=== PATIENT | female | born 1970 | race Caucasian/White ===

== ENCOUNTER 2018-04-20 18:44 | Inpatient (IN) | payer MEDICAID ==
[~2018-04-20] VITALS: Ht 157.5 cm; Wt 58.1 kg
[2018-04-20] MEDS ORDERED: ASPIRIN 81MG TABLET PO ONE (19:15)
[2018-04-20] MEDS ORDERED: NITROGLYCERIN 0.4MG TABLET SL SL PRN (19:15)
[2018-04-20 19:41] LABS: BASOPHILS % 0.9 % (0.0-2.0); EOSINOPHILS % 0.4 % (0.0-5.0); HEMATOCRIT. 39.5 % (36.0-48.0); HEMOGLOBIN. 13.2 g/dL (12.0-16.0); LYMPHOCYTES % 38.3 % (20.0-50.0); MEAN CORPUSCULAR HEMOGLOBIN 29.4 pg (28.0-32.0); MEAN CORPUSCULAR VOLUME 87.8 fL (81.0-99.0); MONOCYTES % 8.7 % (2.0-8.0); NEUTROPHILS % 51.7 % (40.0-76.0); PLATELET 260 x1000/uL (130-400); RED CELL DISTRIBUTION WIDTH 14.7 % (11.6-14.6)
[2018-04-20 19:45] LABS: CHLORIDE 109 mEq/L (98-107)
[2018-04-20 19:52] LABS: D-DIMER < 0.19 mg/L FEU (<0.50); PARTIAL THROMBOPLASTIN TIME 24.7 sec (23.4-31.0)
[2018-04-20] MEDS ORDERED: IPRATROPIUM/ALBUTEROL 0.5-3(2.5)MG/3ML NEB INH PRN (22:00)
[2018-04-20] MEDS ORDERED: MAGNESIUM/ALUMINUM HYDROXIDE/SIMETHICONE 30ML UDC PO PRN (22:00)
[2018-04-20] MEDS ORDERED: ACETAMINOPHEN 325MG TABLET PO PRN (22:00)
[2018-04-20] MEDS ORDERED: HYDROCODONE/ACETAMINOPHEN 5/325MG TABLET PO PRN (22:00)
[2018-04-20] MEDS ORDERED: CLONIDINE 0.1MG TABLET PO PRN (22:00)
[2018-04-20] MEDS ORDERED: ONDANSETRON HCL 4MG/2ML INJ IV PRN (22:00)
[2018-04-20] MEDS ORDERED: DOCUSATE SODIUM 100MG CAPSULE PO PRN (22:00)
[2018-04-20 22:14] LABS: CHLORIDE 109 mEq/L (98-107)
[2018-04-20 22:25] LABS: CREATINE KINASE 55 IU/L (26-192)
[2018-04-20 22:27] LABS: CREATINE KINASE MB FRACTION < 1.0 ng/mL (0.5-3.6)
[2018-04-20 23:49] LABS: *AMPHETAMINES SCREEN URINE NEGATIVE (NEGATIVE); *BARBITURATES SCREEN URINE NEGATIVE (NEGATIVE); *BENZODIAZEPINES SCREEN URINE NEGATIVE (NEGATIVE)
[2018-04-20 23:50] LABS: *COCAINE SCREEN URINE NEGATIVE (NEGATIVE); CANNABINOID URINE SCREEN NEGATIVE (NEGATIVE); METHADONE URINE SCREEN NEGATIVE (NEGATIVE); OPIATES URINE SCREEN NEGATIVE (NEGATIVE); PHENCYCLIDINE URINE SCREEN NEGATIVE (NEGATIVE)
[2018-04-21] VITALS (8 sets, daily range): BP systolic 133–161; BP diastolic 70–104
[2018-04-21 07:32] LABS: BASOPHILS % 0.8 % (0.0-2.0); EOSINOPHILS % 1.3 % (0.0-5.0); HEMOGLOBIN. 12.5 g/dL (12.0-16.0); LYMPHOCYTES % 40.2 % (20.0-50.0); MEAN CORPUSCULAR HEMOGLOBIN 29.4 pg (28.0-32.0); MEAN CORPUSCULAR VOLUME 87.1 fL (81.0-99.0); MEAN PLATELET VOLUME 8.2 fl (7.4-10.4); MONOCYTES % 10.4 % (2.0-8.0); NEUTROPHILS % 47.3 % (40.0-76.0); PLATELET 261 x1000/uL (130-400); RED BLOOD CELL COUNT 4.25 mill/uL (4.2-5.4); RED CELL DISTRIBUTION WIDTH 14.7 % (11.6-14.6)
[2018-04-21 07:53] LABS: LDL CHOLESTEROL 153 mg/dL (5-100)
[2018-04-21 07:54] LABS: CREATINE KINASE 43 IU/L (26-192)
[2018-04-21 07:55] LABS: HDL CHOLESTEROL 53 mg/dL (40-59)
[2018-04-21 07:56] LABS: CREATINE KINASE MB FRACTION < 1.0 ng/mL (0.5-3.6)
[2018-04-21] MEDS: ENOXAPARIN 40MG/0.4ML SYR SUBCUT SCH (09:31)
[2018-04-21] MEDS: ASPIRIN 81MG EC TABLET PO SCH (09:31)
[2018-04-22] VITALS: BP 144/72
[2018-04-22 04:00] VITALS: BP 128/88
[2018-04-22 07:56] LABS: BASOPHILS % 0.8 % (0.0-2.0); EOSINOPHILS % 1.8 % (0.0-5.0); HEMATOCRIT. 37.3 % (36.0-48.0); HEMOGLOBIN. 12.4 g/dL (12.0-16.0); LYMPHOCYTES % 46.9 % (20.0-50.0); MEAN CORPUSCULAR HEMOGLOBIN 29.7 pg (28.0-32.0); MEAN CORPUSCULAR VOLUME 89.4 fL (81.0-99.0); MEAN PLATELET VOLUME 7.9 fl (7.4-10.4); MONOCYTES % 10.6 % (2.0-8.0); NEUTROPHILS % 39.9 % (40.0-76.0); PLATELET 244 x1000/uL (130-400); RED BLOOD CELL COUNT 4.17 mill/uL (4.2-5.4); RED CELL DISTRIBUTION WIDTH 14.5 % (11.6-14.6)
[2018-04-22 08:00] VITALS: BP 129/84
[2018-04-22 08:05] LABS: CHLORIDE 106 mEq/L (98-107)
[2018-04-22] MEDS: ASPIRIN 81MG EC TABLET PO SCH (09:01)
[2018-04-22] MEDS: ENOXAPARIN 40MG/0.4ML SYR SUBCUT SCH (09:05)
[2018-04-22] MEDS ORDERED: AMLO5TAB4 PO (09:12)
[2018-04-22] MEDS ORDERED: TAMO20TA4 PO (09:12)
[2018-04-22] MEDS ORDERED: ASPIRIN 81MG EC TABLET PO SCH (11:30)
[2018-04-22 12:00] VITALS: BP 121/79
[2018-04-22 15:08] VITALS: BP 121/79
[2018-04-22] MEDS ORDERED: ATORVASTATIN CALCIUM 20MG TABLET PO SCH (21:00)
[2018-04-23] MEDS ORDERED: ATENOLOL 25MG TABLET PO SCH (08:00)
== END 2018-04-22 16:27 | disposition home or self-care (01) | DRG 203 ==
LOC: ER 18:44 → 7WST 20:31 → EDBEDREQTM 20:37 → EDBEDREQ 20:37 → ENRESERV 22:43
PROVIDERS: ADMIT Internal Medicine; ATTEND Internal Medicine
DX: M94.0 Chondrocostal junction syndrome [Tietze] (principal); E87.8 Other disorders of electrolyte and fluid balance, not elsewhere classified; I50.32 Chronic diastolic (congestive) heart failure; I11.0 Hypertensive heart disease with heart failure; C50.911 Malignant neoplasm of unspecified site of right female breast; E78.5 Hyperlipidemia, unspecified; E87.6 Hypokalemia
CPT/HCPCS: 36415; 71045; 80048; 80061; 80305; 82550; 82553; 83735; 84443; 84484; 85379; 93005; 93306; 93970; 99285; J1650

== ENCOUNTER 2021-01-05 19:41 | Inpatient (IN) | payer MEDICAID ==
[~2021-01-05] VITALS: Ht 137.2 cm; Wt 58.3 kg
[~2021-01-05 19:41] MED LIST: AMLO5TAB4 PO; TAMO20TA4 PO
[2021-01-05] MEDS ORDERED: CEFTRIAXONE 1 G PREMIX 50 ML IV ONE (20:45)
[2021-01-05] MEDS ORDERED: DEXAMETHASONE 10 MG/ML VIAL IV ONE (20:45)
[2021-01-05] MEDS ORDERED: DOXYCYCLINE HYCLATE 100MG CAPSULE PO ONE (20:45)
[2021-01-05 21:07] LABS: BASOPHILS % 0.7 % (0.0-2.0); EOSINOPHILS % 0.9 % (0.0-5.0); HEMATOCRIT. 37.3 % (36.0-48.0); HEMOGLOBIN. 12.8 g/dL (12.0-16.0); LYMPHOCYTES % 45.3 % (20.0-50.0); MEAN CORPUSCULAR HEMOGLOBIN 28.8 pg (28.0-32.0); MEAN CORPUSCULAR VOLUME 83.5 fL (81.0-99.0); MEAN PLATELET VOLUME 7.2 fl (7.4-10.4); NEUTROPHILS % 39.1 % (40.0-76.0); PLATELET 624 x1000/uL (130-400); RED BLOOD CELL COUNT 4.46 mill/uL (4.2-5.4); RED CELL DISTRIBUTION WIDTH 13.9 % (11.6-14.6)
[2021-01-05 21:13] LABS: CHLORIDE 105 mEq/L (98-107)
[2021-01-05 21:20] LABS: PROTHROMBIN TIME 10.9 sec (9.6-11.0)
[2021-01-05 21:39] LABS: BG BASE EXCESS 3.9 mmol/L (-2.0-2.0); BG CARBOXYHEMOGLOBIN 0.2 % (0.5-1.5); BG DEOXYHEMOGLOBIN 1.5 % (0.0-5.0); BG FRACTION INSPIRED OXYGEN 24; BG METHEMOGLOBIN 0.3 % (0.0-1.5); BG OXYGEN SATURATION 98.5 % (92.0-98.5); BG PCO2 35.8 mmHg (35.0-45.0); BG PH 7.496 (7.350-7.450); BG PO2 131.4 mmHg (75.0-100.0); BG SAMPLE SITE LEFT BRACHIAL; BG TOTAL HEMOGLOBIN 13.4 g/dL (12.0-18.0); BG VENT MODE NASAL CANNULA
[2021-01-05] MEDS ORDERED: IOHEXOL-350 100 ML BOTTLE ONE (23:29)
[2021-01-06] MEDS ORDERED: ONDANSETRON HCL 4MG/2ML INJ IV PRN (11:00)
[2021-01-06] MEDS ORDERED: ACETAMINOPHEN 325MG TABLET PO PRN (11:00)
[2021-01-06] MEDS ORDERED: AMLO10TA80 MT (11:10)
[2021-01-06 11:13] VITALS: BP 125/72
[2021-01-06] MEDS ORDERED: ENOXAPARIN 40MG/0.4ML SYR SUBCUT SCH (11:30)
[2021-01-06 12:00] VITALS: BP 114/77
[2021-01-06 14:18] VITALS: BP 126/74
[2021-01-07] MEDS ORDERED: DEXAMETHASONE 6MG TABLET PO SCH (09:00)
== END 2021-01-06 14:45 | disposition home or self-care (01) | DRG 133 ==
LOC: ER 19:41 → MICUSO 01-06 01:32 → 7WST 01-06 06:54
PROVIDERS: ADMIT Internal Medicine; ATTEND Internal Medicine
DX: J96.20 Acute and chronic respiratory failure, unspecified whether with hypoxia or hypercapnia (principal); E66.9 Obesity, unspecified; I10 Essential (primary) hypertension; Z79.899 Other long term (current) drug therapy; Z87.01 Personal history of pneumonia (recurrent); Z71.3 Dietary counseling and surveillance; Z68.31 Body mass index [BMI] 31.0-31.9, adult; Z86.16 Personal history of COVID-19
CPT/HCPCS: 36415; 36600; 71045; 71275; 80053; 82375; 82805; 83605; 83880; 84484; 85025; 87426; 93005; 99285; C9803; J0696; J1100; J1650; Q9967; U0003; U0005

== ENCOUNTER 2025-02-15 23:02 | Emergency (ER) | payer MEDICAID ==
[~2025-02-15] VITALS: Ht 162.6 cm; Wt 59.0 kg
[~2025-02-15 23:02] MED LIST changes: +AMLO10TA80 MT; -AMLO5TAB4 PO; -TAMO20TA4 PO
[2025-02-15 23:05] VITALS: O2SAT 100
[2025-02-16 00:43] LABS: BASOPHILS % 0.3 % (0.0-2.0); EOSINOPHILS % 0.4 % (0.0-5.0); HEMATOCRIT. 38.5 % (36.0-48.0); HEMOGLOBIN. 12.9 g/dL (12.0-16.0); LYMPHOCYTES % 18.6 % (20.0-50.0); MEAN PLATELET VOLUME 8.0 fl (7.4-10.4); MONOCYTES % 7.7 % (2.0-8.0); NEUTROPHILS % 73.0 % (40.0-76.0); PLATELET 254 x1000/uL (130-400); RED BLOOD CELL COUNT 4.39 mill/uL (4.2-5.4); RED CELL DISTRIBUTION WIDTH 13.3 % (11.6-14.6)
[2025-02-16 00:56] LABS: CREATININE 0.7 mg/dL (0.6-1.0)
[2025-02-16 00:57] LABS: ETHANOL BLOOD < 10 mg/dL (<10); UREA NITROGEN BLOOD 9 mg/dL (9-23)
[2025-02-16 00:58] LABS: ASPARTATE AMINOTRANSFERASE 18 IU/L (<34); BILIRUBIN DIRECT < 0.1 mg/dL (<=3.0)
[2025-02-16 00:59] LABS: BILIRUBIN TOTAL 0.3 mg/dL (0.1-1.0); PROTEIN TOTAL 7.7 g/dL (6.0-8.3)
[2025-02-16 01:44] LABS: HCG SCREEN NEGATIVE
[2025-02-16] MEDS: KETOROLAC 30MG/ML VIAL IM NR (01:46)
[2025-02-16] MEDS: LOSARTAN 50 MG TABLET PO NR (01:46)
[2025-02-16] MEDS: KETOROLAC 30MG/ML VIAL IM ONE (01:47)
[2025-02-16 02:11] LABS: CLARITY URINE CLEAR (CLEAR); COLOR URINE YELLOW (YELLOW); PH URINE 8.0 (4.5-8.0); SPECIFIC GRAVITY URINE 1.014 (1.005-1.030)
[2025-02-16 02:12] LABS: GLUCOSE URINE TRACE (NEGATIVE); KETONES URINE NEGATIVE (NEGATIVE); NITRITE URINE NEGATIVE (NEGATIVE); OCCULT BLOOD URINE NEGATIVE (NEGATIVE); PROTEIN URINE NEGATIVE (NEGATIVE)
[2025-02-16 02:13] LABS: LEUKOCYTE ESTERASE URINE TRACE (NEGATIVE); UROBILINOGEN URINE 0.2 E.U./dL (0.2-1.0)
[2025-02-16 02:17] LABS: BACTERIA URINE NONE SEEN; RBC URINE NONE SEEN /hpf (0-2); SQUAMOUS EPITHELIAL CELL URINE NONE SEEN /lpf (RARE/1+); WBC URINE NONE SEEN /hpf (0-2)
[2025-02-16 02:18] LABS: AMORPHOUS SEDIMENT URINE 2+ /lpf
[2025-02-16 02:34] VITALS: BP 150/90; PULSE 61; RESP 18; TEMP 36.6; O2SAT 98
== END 2025-02-16 02:38 | disposition home or self-care (01) ==
LOC: ER 23:02
DX: F41.0 Panic disorder [episodic paroxysmal anxiety] (principal); R10.24 Suprapubic pain; I10 Essential (primary) hypertension; Z90.710 Acquired absence of both cervix and uterus; Z79.899 Other long term (current) drug therapy
CPT/HCPCS: 36415; 99285; 80076; 80048; 81003; 80320; 84703; 83690; 85025; 74176; 96372; J1885; G0480